=== PATIENT | male | born 1960 | race Caucasian/White ===

== ENCOUNTER 2020-07-07 14:21 | Inpatient (IN) | payer OTHER ==
[2020-07-07 15:16] LABS: #Basophils 0.1 thou/uL (0.0-0.2); #Eosinphils 0.1 thou/uL (0.0-0.7); #Lymphocytes 1.1 thou/uL (1.20-3.40); #Monocytes 0.6 thou/uL (0.11-0.59); #Neutrophils 5.7 thou/uL (1.40-6.50); %Basophils 1.6 % (0.0-1.0); %Eosinophils 1.4 % (0.0-10.0); %Lymphocytes 14.4 % (21.0-51.0); %Monocytes 8.4 % (0.0-10.0); %Neutrophils 74.2 % (42.0-75.0); Hemoglobin 15.5 g/dL (14.0-18.0); Mean Corpuscular HGB CONC 31.6 g/dL (32.0-36.0); Mean Corpuscular Hemoglobin 30.2 pg (27.0-31.0); Mean Corpuscular Volume 95.6 fL (78.0-98.0); Mean Platelet Volume 13.1 fL (7.4-10.4); Platelet Count 152 thou/uL (130-400); RBC Distribution Width 13.2 % (11.5-14.5); Red Blood Cell (RBC) Count 5.12 mill/uL (4.70-6.10); White Blood Cell (WBC) Count 7.6 thou/uL (4.8-10.8)
[2020-07-07 15:17] LABS: ALT (SGPT) 20 U/L (8-55); AST (SGOT) 21 U/L (5-34); Albumin 4.2 g/dL (3.4-4.8); Alkaline Phosphatase 75 U/L (40-110); Anion Gap 16 mmol/L (10-20); BUN (Urea Nitrogen) 21 mg/dL (8.4-25.7); Bilirubin, Total 2.3 mg/dL (0.2-1.2); Calc. Creatinine Clearance 0 mL/min (70-130); Calcium 9.1 mg/dL (7.8-10.44); Carbon Dioxide 26 mmol/L (23-31); Chloride 101 mmol/L (98-107); Globulin 3.1 g/dL (2.4-3.5); Glucose 122 mg/dL (80-115); Protein, Total 7.3 g/dL (5.8-8.1); Sodium 139 mmol/L (136-145)
[2020-07-07 15:30] LABS: Large Platelets SLIGHT
[2020-07-07] MEDS ORDERED: Aspirin Chewable 81 MG TAB ONE (15:30)
[2020-07-07 15:31] LABS: MDiff Complete? YES
[2020-07-07] MEDS ORDERED: Furosemide 40 MG/4 ML VIAL ONE (16:34)
[2020-07-07 19:00] VITALS: BMI 34.2
[2020-07-07] MEDS: Apixaban 5 MG TAB PO SCH (21:21)
[2020-07-07] MEDS: Famotidine 20 MG TAB PO SCH (21:21)
[2020-07-08 05:36] LABS: #Basophils 0.1 thou/uL (0.0-0.2); #Eosinphils 0.1 thou/uL (0.0-0.7); #Lymphocytes 1.1 thou/uL (1.20-3.40); #Monocytes 0.5 thou/uL (0.11-0.59); #Neutrophils 4.6 thou/uL (1.40-6.50); %Eosinophils 2.1 % (0.0-10.0); %Lymphocytes 17.7 % (21.0-51.0); %Monocytes 7.5 % (0.0-10.0); %Neutrophils 71.7 % (42.0-75.0); Hemoglobin 14.6 g/dL (14.0-18.0); Mean Corpuscular HGB CONC 33.3 g/dL (32.0-36.0); Mean Corpuscular Volume 93.1 fL (78.0-98.0); Mean Platelet Volume 12.6 fL (7.4-10.4); Platelet Count 139 thou/uL (130-400); RBC Distribution Width 13.3 % (11.5-14.5); White Blood Cell (WBC) Count 6.4 thou/uL (4.8-10.8)
[2020-07-08 05:50] LABS: ALT (SGPT) 18 U/L (8-55); AST (SGOT) 18 U/L (5-34); Albumin 3.8 g/dL (3.4-4.8); Alkaline Phosphatase 81 U/L (40-110); Anion Gap 17 mmol/L (10-20); BUN (Urea Nitrogen) 19 mg/dL (8.4-25.7); Bilirubin, Total 1.9 mg/dL (0.2-1.2); Calc. Creatinine Clearance 110 mL/min (70-130); Calcium 8.9 mg/dL (7.8-10.44); Carbon Dioxide 27 mmol/L (23-31); Chloride 101 mmol/L (98-107); Globulin 2.8 g/dL (2.4-3.5); Glucose 109 mg/dL (80-115); Potassium 3.7 mmol/L (3.5-5.1); Protein, Total 6.6 g/dL (5.8-8.1); Sodium 141 mmol/L (136-145)
[2020-07-08] MEDS ORDERED: Furosemide 40 MG/4 ML VIAL SLOW IVP SCH (07:30)
[2020-07-08] MEDS: Spironolactone 25 MG TAB PO SCH (07:54)
[2020-07-08] MEDS: Famotidine 20 MG TAB PO SCH ×2 (07:54→21:40)
[2020-07-08] MEDS: Apixaban 5 MG TAB PO SCH ×2 (07:54→21:40)
[2020-07-08] MEDS ORDERED: Ondansetron ODT 4 MG TAB PO PRN (08:15)
[2020-07-08] MEDS ORDERED: Ondansetron PF 4 MG/2 ML Vial IVP PRN (08:15)
[2020-07-08 08:19] LABS: SARS-CoV-2 NAA Rapid Test DETECTED (NotDetected)
[2020-07-08] MEDS: Acetaminophen 325 MG TAB PO PRN (10:28)
[2020-07-08] MEDS: Furosemide 40 MG/4 ML VIAL SLOW IVP SCH (13:26)
[2020-07-08 14:52] LABS: SARS-CoV-2 IgG Ab Reactive (NonReactive); SARS-CoV-2 IgG Index 1.93 S/CO (< 1.40)
[2020-07-09] MEDS: Furosemide 40 MG/4 ML VIAL SLOW IVP SCH (05:57)
[2020-07-09 06:02] LABS: Anion Gap 13 mmol/L (10-20); BUN (Urea Nitrogen) 16 mg/dL (8.4-25.7); Calc. Creatinine Clearance 117 mL/min (70-130); Calcium 8.7 mg/dL (7.8-10.44); Carbon Dioxide 30 mmol/L (23-31); Chloride 101 mmol/L (98-107); Glucose 105 mg/dL (80-115); Potassium 3.4 mmol/L (3.5-5.1); Sodium 141 mmol/L (136-145)
[2020-07-09] MEDS: Acetaminophen 325 MG TAB PO PRN (06:19)
[2020-07-09 06:33] VITALS: BP 127/85; TEMP 97.7
[2020-07-09] MEDS: Spironolactone 25 MG TAB PO SCH (08:39)
[2020-07-09] MEDS: Famotidine 20 MG TAB PO SCH (08:39)
[2020-07-09] MEDS: Apixaban 5 MG TAB PO SCH (08:39)
== END 2020-07-09 11:10 | disposition home or self-care (01) | DRG 291 ==
LOC: BURERS 14:21 → BURMED 17:00 → OBSVTOIN 07-08 07:19
PROVIDERS: ADMIT Family Medicine; ATTEND Family Medicine
DX: I13.0 Hypertensive heart and chronic kidney disease with heart failure and stage 1 through stage 4 chronic kidney disease, or unspecified chronic kidney disease (principal); I50.23 Acute on chronic systolic (congestive) heart failure; N18.31 Chronic kidney disease, stage 3a; F17.220 Nicotine dependence, chewing tobacco, uncomplicated; I48.0 Paroxysmal atrial fibrillation; Z95.810 Presence of automatic (implantable) cardiac defibrillator; Z79.01 Long term (current) use of anticoagulants
CPT/HCPCS: 0240U; 36415; 71045; 80048; 80053; 83880; 84484; 85025; 86769; 93005; 96374; G0378; J1940